=== PATIENT | male | born 1980 | race Hispanic/Latino ===

== ENCOUNTER 2023-02-22 15:58 | Inpatient (IN) | payer BC ==
[2023-02-22 16:23] VITALS: BMI 29.7
[2023-02-22] MEDS ORDERED: Ketorolac Tromethamine 30 MG/ML VIAL IVP PRN (16:53)
[2023-02-22] MEDS ORDERED: Ondansetron PF 4 MG/2 ML Vial IVP PRN ×2 (16:53→19:58)
[2023-02-22] MEDS ORDERED: Morphine 4 MG/ML VIAL SLOW IVP PRN (16:56)
[2023-02-22 17:19] LABS: #Basophils 0.1 thou/uL (0.0-0.2); #Eosinphils 0.2 thou/uL (0.0-0.7); #Lymphocytes 0.9 thou/uL (1.20-3.40); #Monocytes 0.5 thou/uL (0.11-0.59); #Neutrophils 5.6 thou/uL (1.40-6.50); %Basophils 0.7 % (0.0-1.0); %Eosinophils 2.6 % (0.0-10.0); %Lymphocytes 12.5 % (21.0-51.0); %Monocytes 6.8 % (0.0-10.0); %Neutrophils 77.3 % (42.0-75.0); Hemoglobin 14.7 g/dL (14.0-18.0); Mean Corpuscular HGB CONC 32.5 g/dL (32.0-36.0); Mean Corpuscular Hemoglobin 26.9 pg (27.0-31.0); Mean Platelet Volume 7.2 fL (7.4-10.4); Platelet Count 199 10x3/uL (130-400); RBC Distribution Width 12.6 % (11.5-14.5); Red Blood Cell (RBC) Count 5.47 mill/uL (4.70-6.10); White Blood Cell (WBC) Count 7.2 10x3/uL (4.8-10.8)
[2023-02-22] MEDS: D5 0.9% NS w/ 20 mEq KCl 1,000 ML IV SCH (17:24)
[2023-02-22 17:41] LABS: ALT (SGPT) 291 U/L (8-55); AST (SGOT) 80 U/L (5-34); Alkaline Phosphatase 318 U/L (40-110); Anion Gap 14 mmol/L (10-20); BUN (Urea Nitrogen) 10 mg/dL (8.9-20.6); Bilirubin, Total 5.8 mg/dL (0.2-1.2); Calc. Creatinine Clearance 87 mL/min (70-130); Calcium 10.2 mg/dL (7.8-10.44); Carbon Dioxide 26 mmol/L (22-29); Chloride 100 mmol/L (98-107); Estimated GFR 67; Globulin 3.1 g/dL (2.4-3.5); Glucose 93 mg/dL (70-105); Lipase 23 U/L (8-78); Protein, Total 7.1 g/dL (6.0-8.3); Sodium 136 mmol/L (136-145)
[2023-02-22] MEDS ORDERED: Calcium Carbonate 500 MG ChewTAB PO PRN (19:58)
[2023-02-22] MEDS ORDERED: Ipratropium/Albuterol 3 ML NEB NEB PRN (19:58)
[2023-02-22] MEDS ORDERED: Dextrose 50% Abboject 50 ML SYRINGE SLOW IVP PRN (19:58)
[2023-02-22] MEDS ORDERED: Promethazine HCl 25 MG/ML VIAL IM PRN (19:58)
[2023-02-22] MEDS ORDERED: Dextrose 5% in Water 1,000 ML IV PRN (19:58)
[2023-02-22] MEDS ORDERED: Mag-Al 1200 mg/1200 mg/30 ML UDCUP PO PRN (19:58)
[2023-02-22] MEDS ORDERED: hydrALAZINE 20 MG/ML VIAL SLOW IVP PRN (19:58)
[2023-02-22] MEDS: Famotidine 20 MG TAB PO SCH (20:17)
[2023-02-22] MEDS: Famotidine/PF 20 mg/2ml Vial SLOW IVP SCH (23:19)
[2023-02-23] MEDS: D5 0.9% NS w/ 20 mEq KCl 1,000 ML IV SCH (00:07)
[2023-02-23] MEDS ORDERED: D5 1/2 NS w/20 mEq KCL 1,000 ML IV SCH (06:30)
[2023-02-23 06:58] LABS: #Eosinphils 0.2 thou/uL (0.0-0.7); #Monocytes 0.4 thou/uL (0.11-0.59); #Neutrophils 2.9 thou/uL (1.40-6.50); %Basophils 0.2 % (0.0-1.0); %Eosinophils 5.5 % (0.0-10.0); %Lymphocytes 22.4 % (21.0-51.0); %Monocytes 8.7 % (0.0-10.0); %Neutrophils 63.2 % (42.0-75.0); Hemoglobin 14.2 g/dL (14.0-18.0); Mean Corpuscular HGB CONC 33.2 g/dL (32.0-36.0); Mean Corpuscular Volume 84.3 fl (78.0-98.0); Mean Platelet Volume 7.1 fL (7.4-10.4); Platelet Count 174 10x3/uL (130-400); RBC Distribution Width 12.7 % (11.5-14.5); Red Blood Cell (RBC) Count 5.09 mill/uL (4.70-6.10); White Blood Cell (WBC) Count 4.5 10x3/uL (4.8-10.8)
[2023-02-23 07:17] LABS: ALT (SGPT) 214 U/L (8-55); AST (SGOT) 65 U/L (5-34); Albumin 3.3 g/dL (3.5-5.0); Alkaline Phosphatase 267 U/L (40-110); Anion Gap 11 mmol/L (10-20); BUN (Urea Nitrogen) 7 mg/dL (8.9-20.6); Bilirubin, Total 4.3 mg/dL (0.2-1.2); Calc. Creatinine Clearance 119 mL/min (70-130); Calcium 8.9 mg/dL (7.8-10.44); Carbon Dioxide 24 mmol/L (22-29); Chloride 107 mmol/L (98-107); Estimated GFR 96; Globulin 2.6 g/dL (2.4-3.5); Glucose 126 mg/dL (70-105); Potassium 3.7 mmol/L (3.5-5.1); Protein, Total 5.9 g/dL (6.0-8.3); Sodium 138 mmol/L (136-145)
[2023-02-23] MEDS: Famotidine 20 MG TAB PO SCH ×2 (09:41→20:19)
[2023-02-23] MEDS: Famotidine/PF 20 mg/2ml Vial SLOW IVP SCH ×2 (09:42→20:21)
[2023-02-23] MEDS: Pantoprazole 40 MG VIAL IVP SCH (09:42)
[2023-02-23] MEDS ORDERED: cefOXitin 2 GM in Sodium Chloride 0.9% 100 ML IVPB SCH (10:30)
[2023-02-23] MEDS ORDERED: Iopamidol 30 ML ONE (11:07)
[2023-02-23] MEDS ORDERED: Indomethacin 50 MG SUPP ONE (11:10)
[2023-02-23] MEDS ORDERED: Fentanyl 250 MCG/5 ML VIAL ONE (11:14)
[2023-02-23] MEDS ORDERED: cefOXitin 2 GM VIAL ONE (11:16)
[2023-02-23] MEDS ORDERED: Sodium Chloride 0.9% 100 ML ONE (11:16)
[2023-02-23] MEDS ORDERED: Lidocaine 1% PF 5 ML VIAL ONE (11:29)
[2023-02-23] MEDS ORDERED: Dexamethasone 20 MG/5 ML VIAL ONE (11:29)
[2023-02-23] MEDS ORDERED: PROPOFOL 200 MG/20 ML VIAL ONE (11:29)
[2023-02-23] MEDS ORDERED: Rocuronium Bromide 10 MG/ML (10ML VIAL) ONE (11:29)
[2023-02-23] MEDS ORDERED: Ketorolac Tromethamine 30 MG/ML VIAL ONE (11:29)
[2023-02-23] MEDS ORDERED: Ondansetron PF 4 MG/2 ML Vial ONE (11:29)
[2023-02-23] MEDS ORDERED: Bupivacaine/Epinephrine 0.25% 30 ML VIAL ONE (12:29)
[2023-02-23] MEDS ORDERED: SUGAMMADEX SODIUM 200 MG/2 ML VIAL ONE (13:24)
[2023-02-23] MEDS ORDERED: hydrALAZINE 20 MG/ML VIAL SLOW IVP PRN (13:40)
[2023-02-23] MEDS ORDERED: Dextrose 5% in Water 1,000 ML IV PRN (13:40)
[2023-02-23] MEDS ORDERED: HYDROcodone/Acetaminophen 10/325 mg Tablet PO PRN (13:40)
[2023-02-23] MEDS ORDERED: Ipratropium/Albuterol 3 ML NEB NEB PRN (13:40)
[2023-02-23] MEDS ORDERED: Morphine 4 MG/ML VIAL SLOW IVP PRN (13:40)
[2023-02-23] MEDS ORDERED: Promethazine HCl 25 MG/ML VIAL IM PRN (13:40)
[2023-02-23] MEDS ORDERED: Ondansetron PF 4 MG/2 ML Vial IVP PRN (13:40)
[2023-02-23] MEDS ORDERED: Morphine 2 MG/ML VIAL SLOW IVP PRN (13:40)
[2023-02-23] MEDS ORDERED: Dextrose 50% Abboject 50 ML SYRINGE SLOW IVP PRN (13:40)
[2023-02-23] MEDS ORDERED: Mag-Al 1200 mg/1200 mg/30 ML UDCUP PO PRN (13:40)
[2023-02-23] MEDS ORDERED: Calcium Carbonate 500 MG ChewTAB PO PRN (13:40)
[2023-02-23] MEDS ORDERED: fentaNYL 50 mcg/mL 1 mL Vial ONE (13:54)
[2023-02-23] MEDS ORDERED: Piperacillin/Tazobactam 3.375 GM in Sodium Chloride 0.9% 100 ML IVPB SCH (14:00)
[2023-02-23] MEDS ORDERED: D5 1/2 NS w/20 mEq KCL 1,000 ML ONE (14:02)
[2023-02-23] MEDS ORDERED: HYDROmorphone 0.5 MG/0.5 ML SYRINGE ONE (14:06)
[2023-02-23] MEDS: D5 1/2 NS w/20 mEq KCL 1,000 ML IV SCH (15:04)
[2023-02-23] MEDS: HYDROcodone/Acetaminophen 10/325 mg Tablet PO PRN (15:23)
[2023-02-23] MEDS: Piperacillin/Tazobactam 3.375 GM in Sodium Chloride 0.9% 100 ML IVPB SCH (17:23)
[2023-02-24] MEDS ORDERED: diphenhydrAMINE 25 MG CAP PO PRN (00:34)
[2023-02-24] MEDS: predniSONE 50 MG TAB PO SCH ×3 (00:52→12:41)
[2023-02-24] MEDS: Piperacillin/Tazobactam 3.375 GM in Sodium Chloride 0.9% 100 ML IVPB SCH ×2 (01:03→09:38)
[2023-02-24] MEDS: D5 1/2 NS w/20 mEq KCL 1,000 ML IV SCH ×3 (01:05→14:46)
[2023-02-24 07:06] LABS: #Eosinphils 0.4 thou/uL (0.0-0.7); #Lymphocytes 0.9 thou/uL (1.20-3.40); #Monocytes 0.4 thou/uL (0.11-0.59); #Neutrophils 7.3 thou/uL (1.40-6.50); %Basophils 0.2 % (0.0-1.0); %Eosinophils 4.2 % (0.0-10.0); %Monocytes 4.6 % (0.0-10.0); %Neutrophils 80.9 % (42.0-75.0); Hemoglobin 13.5 g/dL (14.0-18.0); Mean Corpuscular HGB CONC 33.5 g/dL (32.0-36.0); Mean Corpuscular Hemoglobin 28.4 pg (27.0-31.0); Mean Corpuscular Volume 84.7 fl (78.0-98.0); Mean Platelet Volume 7.2 fL (7.4-10.4); Platelet Count 176 10x3/uL (130-400); RBC Distribution Width 12.8 % (11.5-14.5); Red Blood Cell (RBC) Count 4.76 mill/uL (4.70-6.10)
[2023-02-24 07:28] LABS: ALT (SGPT) 189 U/L (8-55); AST (SGOT) 64 U/L (5-34); Albumin 3.3 g/dL (3.5-5.0); Alkaline Phosphatase 237 U/L (40-110); Anion Gap 12 mmol/L (10-20); BUN (Urea Nitrogen) 7 mg/dL (8.9-20.6); Bilirubin, Total 2.4 mg/dL (0.2-1.2); Calc. Creatinine Clearance 103 mL/min (70-130); Carbon Dioxide 22 mmol/L (22-29); Chloride 108 mmol/L (98-107); Estimated GFR 82; Globulin 2.7 g/dL (2.4-3.5); Glucose 135 mg/dL (70-105); Lipase 33 U/L (8-78); Potassium 3.9 mmol/L (3.5-5.1); Sodium 138 mmol/L (136-145)
[2023-02-24] MEDS: HYDROcodone/Acetaminophen 10/325 mg Tablet PO PRN (09:44)
[2023-02-24] MEDS: Famotidine/PF 20 mg/2ml Vial SLOW IVP SCH (09:45)
[2023-02-24] MEDS: Famotidine 20 MG TAB PO SCH (09:45)
[2023-02-24] MEDS: Pantoprazole 40 MG VIAL IVP SCH (09:45)
[2023-02-24 15:23] VITALS: BP 129/81; TEMP 97.6
== END 2023-02-24 15:10 | disposition home or self-care (01) | DRG 418 ==
LOC: T4-A 15:59
PROVIDERS: ADMIT Surgery; ATTEND Surgery
PROC: 0FT44ZZ Resection of Gallbladder, Percutaneous Endoscopic Approach (ICD-10-PCS; principal; 2023-02-23)
PROC: 0FC98ZZ Extirpation of Matter from Common Bile Duct, Via Natural or Artificial Opening Endoscopic (ICD-10-PCS; 2023-02-23)
PROC: BF131ZZ Fluoroscopy of Gallbladder and Bile Ducts using Low Osmolar Contrast (ICD-10-PCS; 2023-02-23)
PROC: 0DB78ZX Excision of Stomach, Pylorus, Via Natural or Artificial Opening Endoscopic, Diagnostic (ICD-10-PCS; 2023-02-23)
DX: K80.62 Calculus of gallbladder and bile duct with acute cholecystitis without obstruction (principal); C16.2 Malignant neoplasm of body of stomach; K31.89 Other diseases of stomach and duodenum; M10.9 Gout, unspecified; Z79.899 Other long term (current) drug therapy; Z83.3 Family history of diabetes mellitus; Z82.49 Family history of ischemic heart disease and other diseases of the circulatory system; Z88.8 Allergy status to other drugs, medicaments and biological substances; Z91.041 Radiographic dye allergy status
CPT/HCPCS: 36415; 71260; 74177; 74330; 80053; 83690; 85025; 88304; 88305; 88313; 88341; 88342; C1889; C9113; J0694; J1100; J1170; J1611; J1885; J2270; J2405; J2543; J2704; J3010; J3480; J3490; J7512; Q9967; S0028

== ENCOUNTER → 2023-03-27 | Outpatient (CLI) | payer BC | LOC: PET 10:15 | PROVIDERS: ATTEND Internal Medicine Hematology & Oncology | DX: C16.9 Malignant neoplasm of stomach, unspecified (principal) | CPT/HCPCS: 78815; A9552 ==

== ENCOUNTER 2023-05-25 08:45 | Outpatient (CLI) | payer BC | END 2023-05-25 08:46 | LOC: PET 08:45 | PROVIDERS: ATTEND Internal Medicine Hematology & Oncology | DX: C16.5 Malignant neoplasm of lesser curvature of stomach, unspecified (principal) | CPT/HCPCS: 78815; A9552 ==

== ENCOUNTER 2024-05-16 07:53 | Outpatient (CLI) | payer BC | END 2024-05-16 07:54 | disposition home or self-care (01) | LOC: BICCT 07:53 | PROVIDERS: ATTEND Internal Medicine Hematology & Oncology | DX: C16.9 Malignant neoplasm of stomach, unspecified (principal); K63.89 Other specified diseases of intestine; Z90.49 Acquired absence of other specified parts of digestive tract | CPT/HCPCS: 71260; 74177 ==

== ENCOUNTER 2025-06-12 07:49 | Outpatient (CLI) | payer OTHER ==
[2025-06-12] MEDS ORDERED: Iopamidol 370 76% 100 ML VIAL ONE (14:15)
== END 2025-06-12 07:50 | disposition home or self-care (01) ==
LOC: CT 07:49
PROVIDERS: ATTEND Internal Medicine Hematology & Oncology
DX: C16.5 Malignant neoplasm of lesser curvature of stomach, unspecified (principal); D50.0 Iron deficiency anemia secondary to blood loss (chronic); I25.10 Atherosclerotic heart disease of native coronary artery without angina pectoris; R93.3 Abnormal findings on diagnostic imaging of other parts of digestive tract; M61.9 Calcification and ossification of muscle, unspecified; Z95.828 Presence of other vascular implants and grafts; Z90.49 Acquired absence of other specified parts of digestive tract; Z98.890 Other specified postprocedural states
CPT/HCPCS: 71260; 74177; Q9967